=== PATIENT | male | born 1965 | race Two or more races ===

== ENCOUNTER 2020-07-21 15:19 | Emergency (ER) | payer SELFPAY ==
[~2020-07-21] VITALS: Ht 172.7 cm; Wt 91.0 kg
--- NOTE | 2020-07-21 15:51 | PHYS DOC ---
Past Medical History Past Medical History: No Pertinent History Past Surgical History: No Surgical History Smoking Status: Never Smoker Alcohol Use: Occasionally Drug Use: None General Adult EDM: Chief Complaint: ANKLE PROBLEM HPI: HPI: This is a pleasant 55-year-old male who presents to the emergency department today after falling. He reports he was on a wall that is approximately 10 feet tall. When he fell, he was able to grab a hold of the wall and then slowly let himself down from approximately 4 feet. At that time he hit his head but did not lose consciousness. He denies any pain other than injuring his right ankle. He denies nausea vomiting fevers chills. He denies neck pain chest pain back pain shortness of breath or abdominal pain. This happened this morning at 930. Review of systems negative for chest pain shortness of breath abdominal pain loss of consciousness. He denies any other injuries to his extremities. All other review of systems negative. ED course: 55-year-old male presenting after a fall. Secondary traumatic survey unremarkable for any other traumatic injuries. Head CT unremarkable. X-ray ankle unremarkable for fracture or dislocation. We will place the patient in a ankle Velcro splint and crutches and have the patient follow-up with PCP in 2 to 3 days. If his pain persists we will have him get an MRI in the next 5 to 7 days. He is to return for any numbness weakness tingling worsening pain or any other concerns. Heart Score: Risk Factors: Risk Factors: DM, Current or recent (<one month) smoker, HTN, HLP, family history of CAD, obesity. Risk Scores: Score 0 - 3: 2.5% MACE over next 6 weeks - Discharge Home Score 4 - 6: 20.3% MACE over next 6 weeks - Admit for Clinical Observation Score 7 - 10: 72.7% MACE over next 6 weeks - Early Invasive Strategies Allergies: Allergies: Allergies Coded Allergies Type Severity Reaction Last Updated Verified No Known Drug Allergies 07/20/14 No Physical Exam: PE: General Appearance alert, cooperative, no distress, responsive Head Normocephalic, without obvious abnormality, atraumatic Eyes conjunctivae/corneas clear. PERRL, EOM's intact. Ears normal TM's Nose Nares normal. Septum midline. Mucosa normal. No drainage or sinus tenderness. Throat no blood or lacerations, normal alignment Neck supple, symmetrical, trachea midline Back/Spine symmetric, normal curvature. ROM normal, no abrasions, no tenderness to palpation, no step-offs Lungs clear to auscultation bilaterally Chest Wall normal ribcage without tenderness to palpation, crepitus or emphysema Heart reg rate and regular rhythm, S1, S2 normal, no murmur, click, rub or gallop Abdomen soft, non-tender. Bowel sounds normal. No masses, no organomegaly Pelvic stable Rectal Able to squeeze gluteus abbie Extremities The patient's right lower extremity has tenderness palpation along the bilateral malleolar I with swelling. There are no abrasions lacerations or ecchymosis. Skin is intact. Palpable pulse distally with 2-second cap refill. Normal motor and sensory function of the foot. Nontender foot. Nontender knee. Normal range of motion of the hip without any pain. The patient's left upper extremity, right upper extremity, and left lower extremity are nontender with normal range of motion of joints. Neurovascular intact with normal motor and sensory function distally. 2-second cap refill. Clavicles are nontender bilaterally. Pulses 2+ and symmetric Skin Skin color, texture, turgor normal. No rashes or lesions Neurologic Grossly normal Eye opening: (4) spontaneous Best motor response: (6) obeys verbal command Best verbal response: (5) oriented and converses Total [place] (E + M + V) = 15 Mental status: Awake oriented and alert x3 Cranial nerves: Extraocular movements intact, eyebrows felicita bilaterally, smile symmetric, uvula elevation nl, shoulder shrug intact bilaterally, tongue protrusion normal Clear speech. Sensation: equal and normal in all extremities Strength: 5/5 in upper and lower extremities bilaterally EKG: EKG: [] Radiology/Procedures: Radiology/Procedures: [] Course & Med Decision Making: Course & Med Decision Making Pertinent Labs and Imaging studies reviewed. (See chart for details) [] Maggie Disclaimer: Maggie Disclaimer: This electronic medical record was generated, in whole or in part, using a voice recognition dictation system. Departure Departure Impression: Primary Impression: Right ankle injury Additional Impressions: Fall Head injury Head injury due to trauma Disposition: 01 DC HOME SELF CARE/HOMELESS Condition: STABLE Referrals: NO PCP (PCP) Patient Instructions: Ankle Sprain Additional Instructions: EMERGENCY DEPARTMENT GENERAL DISCHARGE INSTRUCTIONS Follow-up with your primary physician in 1 to 2 days. Return to the emergency department if you have any new or concerning findings. Thank you for coming to [facility] Emergency Department (ED) today and trusting us with you care. We trust that you had a positive experience in our Emergency Department. If you wish to speak to the department management, you may call the Director at [phone]. YOUR FOLLOW UP INSTRUCTIONS ARE FOLLOWS: 1. Do you have a private Doctor? If you do not have a private doctor, please ask for a resource list of physicians or clinics that may be able to assist you with follow up care. 2. If a lab test or culture has been done and does not come back immediately, your results will be reviewed and you will be notified if you need a change in treatment. ADDITIONAL INSTRUCTIONS AND INFORMATION: 1. Your care today has been supervised by a physician who is specially trained in emergency care. Many problems require more than one evaluation for a complete diagnosis and treatment. We recommend that you schedule your follow up appointment as recommended to ensure complete treatment of you illness or injury. If you are unable to obtain follow up care and continue to have a pr oblem, or if your condition worsens, we recommend that you return to the ED. 2. We are not able to safely determine your condition over the phone nor are we able to give sound medical advice over the phone. For these safety reasons, if you call for medical advice we will ask you to come to the ED for further evaluation. 3. If you have any questions regarding these discharge instructions please call the ED at [phone]. SAFETY INFORMATION: In the interest of safety, wellness, and injury prevention; we encourage you to wear your sealbelt, if you smoke; quite smoking, and we encourage family to use a protective helmet for bicycling and other sporting events that present an increased risk for head injury. IF YOUR SYMPTOMS WORSEN OR NEW SYMPTOMS DEVELOP, OR YOU HAVE CONCERNS ABOUT YOUR CONDITION; OR IF YOUR CONDITION WORSENS WHILE YOU ARE WAITING FOR YOUR FOLLOW UP APPOINTMENT; EITHER CONTACT YOUR PRIMARY CARE DOCTOR, THE PHYSICIAN WHOSE NAME AND NUMBER YOU WERE GIVEN, OR RETURN TO THE ED IMMEDIATELY. This condition should be evaluated by your primary care physician and any necessary consulting services for continued management within a few days (1-2) after discharge. Return to the emergency department if you have any new or concerning symptoms including but not limited to fever, chills, nausea, vomiting, intractable pain, any new rashes, chest pain, shortness of breath, un controlled bleeding, difficulty breathing, and/or vision loss. VINCENT DAVIS MD Jul 21, 2020 15:51
[2020-07-21] MEDS ORDERED: IV NORMAL SALINE 1000ML BAG 1,000 ML IV ONE (16:00)
[2020-07-21] MEDS: HYDROmorphone 2 MG/ML VIAL IV/SQ PRN ×2 (16:09→17:30)
--- NOTE | 2020-07-21 16:40 | RAD ---
CT head and cervical spine without contrast 07/21/2020. Reason for exam: Injured in a fall. Noncontrast images were performed. Sagittal and coronal reconstructions of the cervical spine were ob tained. Exposure: One or more of the following individualized dose reduction techniques were utilized for this examination: 1. Automated exposure control 2. Adjustment of the mA and/or kV according to patient size 3. Use of iterative reconstruction technique. CT head findings: There is no apparent intracranial hemorrhage or abnormal extra-axial fluid collecti on. No area of abnormal density is identified in the brain. The ventricles and basilar cisterns are n ormally positioned. Bone windows show no apparent fracture of the skull or abnormal sinus or mastoid opacification. IMPRESSION: No apparent acute abnormality in the brain. CT cervical spine: Alignment is normal. There is no apparent loss of vertebral body height or prevert ebral soft tissue swelling. No fracture line is seen. Intervertebral discs are not narrowed. Evaluati on of the soft tissue components of the canal is limited without intrathecal contrast. There is no ap parent destructive process. IMPRESSION: No acute abnormality. Electronically signed by: Gabriel Loza Jr., MD (07/21/2020 4:37 PM) [id number]
--- NOTE | 2020-07-21 16:55 | RAD ---
Exam: Right ankle 3 views. Right tibia and fibula 2 views INDICATION: Right ankle pain TECHNIQUE: Frontal, lateral and oblique views the right ankle. Frontal and lateral views of the right tibia and fibula Comparisons: None FINDINGS: Ankle: Diffuse soft tissue swelling is noted surrounding the right ankle. Bone mineralization is normal. No acute or healed fractures. Joint spaces are well-maintained. Tib-fib: Bone mineralization is normal. No acute or healed fractures. Soft tissues are unremarkable. Joint spa millie are well-maintained. IMPRESSION: 1. Diffuse soft tissue swelling surrounding the ankle without underlying osseous abnormality identif ied. 2. No acute osseous abnormality at the right tibia or fibula. Electronically signed by: Victor Manuel Shelley MD (07/21/2020 4:52 PM) [place]
[2020-07-21] MEDS ORDERED: HYDR-2761 PO (18:37)
[2020-07-21 19:37] VITALS: BP 155/87
== END 2020-07-21 19:45 | disposition home or self-care (01) ==
LOC: ER 15:19
DX: S99.911A Unspecified injury of right ankle, initial encounter (principal); S09.90XA Unspecified injury of head, initial encounter; R51.9 Headache, unspecified; W18.39XA Other fall on same level, initial encounter; Y93.89 Activity, other specified; Y92.89 Other specified places as the place of occurrence of the external cause; Y99.8 Other external cause status
CPT/HCPCS: 70450; 72125; 73590; 73610; 96361; 96374; 96376; 99285; J1170; J7030; L4350